=== PATIENT | female | born 1960 | race Caucasian/White ===

== ENCOUNTER 2019-08-22 10:54 | Emergency (ER) | payer BC ==
--- OUTSIDE RECORDS SUMMARY | 2019-08-22 11:02 | XMS REPORT | Continuity of Care Document ---
:1960 External Reference #:[id number] Author Name Bia Rosado M.D. 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 Problems Description No Information Available Social History Type Date Description Comments Sex Unknown ETOH Use Currently consumes alcohol Tobacco Use Start: Unknown Patient has never smoked Recreational Drug Use Never Used Drugs Smoking Status Reviewed: 07/23/19 Patient has never smoked Exercise Type/Frequency Does not exercise Allergies, Adverse Reactions, Alerts Description No Known Drug Allergies Medications Active Medications SIG Qnty Indications Ordering Provider Date Vitamin B-12 ER Unknown Metoprolol Succinate Unknown ER 25mg Tablets ER 24HR Vitamin D High Potency 1 daily Unknown Magnesium 1 by mouth every Unknown 400mg Tablets day Aleve 1-2 by mouth Unknown 220mg Capsules twice a day as needed Keyes XL Unknown [id number] Capsules Medications Administered in Office Medication SIG Qnty Indications Ordering Provider Date Depomedrol 40MG Bia Rosado M.D. 07/23/2019 Injection Depomedrol 40MG CROW Miller 04/25/2018 Injection Immunizations Description No Information Available Vital Signs Date Vital Result Comment 07/23/2019 9:41am Height 65 inches 5'5" Weight 161.00 lb Heart Rate 65 /min BP Systolic 122 mmHg BP Diastolic 82 mmHg Respiratory Rate 18 /min Pain Level 8 O2 % BldC Oximetry 99 % BMI (Body Mass Index) 26.8 kg/m2 04/25/2018 11:18am Height 65 inches 5'5" Weight 173.00 lb BP Systolic 117 mmHg BP Diastolic 76 mmHg Respiratory Rate 16 /min Pain Level 10 BMI (Body Mass Index) 28.8 kg/m2 Results Description No Information Available Procedures Date Code Description Status 07/23/201922914 Inject Tendon Sheath Or Ligament Aponeurosis Eg Plantar Completed Fascia Medical Devices Description No Information Available Encounters Description No Information Available Assessments Date Code Description Provider 07/23/2019 M65.4 Radial styloid tenosynovitis [de Quervain] Bia Rosado M.D. Plan of Treatment 07/23/2019 - Bia Rosado M.D.M65.4 Radial styloid tenosynovitis [de Quervain]Follow up:Follow up: As needed Functional Status Description No Information Available Mental Status Description No Information Available Referrals Description No Information Available
--- OUTSIDE RECORDS SUMMARY | 2019-08-22 11:02 | XMS REPORT | Continuity of Care Document ---
:1960 External Reference #:[id number] Author Name Bia Rosado M.D. Address [address] [facility] [place] [address] Care Team Providers Name Role Phone David Hernandez MD - Internal Medicine Care Team Information Home Health Care Physician Problems Description No Information Available Social History [...] 220mg Capsules twice a day as needed Romney XL Unknown [id number] Capsules Medications Administered in Office Medication SIG Qnty Indications Ordering Provider Date Depomedrol 40MG CROW Miller 04/25/2018 Injection Immunizations [...] Information Available Procedures Date Code Description Status 07/23/201995972 Inject Tendon Sheath Or Ligament Aponeurosis Eg [...]
--- OUTSIDE RECORDS SUMMARY | 2019-08-22 11:02 | XMS REPORT | Continuity of Care Document ---
:1960 External Reference #:[id number] Author Name Michelle Maldonado M.D. 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 07/23/2019 Injection Depomedrol 40MG CROW Miller 04/25/2018 Injection Immunizations Description No Information Available Vital Signs Date Vital Result Comment 08/22/2019 9:33am Height 65 inches 5'5" Weight 148.00 lb Heart Rate 80 /min BP Systolic 132 mmHg BP Diastolic 70 mmHg Body Temperature 97.6 F Pain Level 10 BMI (Body Mass Index) 24.6 kg/m2 07/23/2019 9:41am Height 65 inches 5'5" Weight 161.00 lb Heart Rate 65 /min BP Systolic 122 mmHg BP Diastolic 82 mmHg Respiratory Rate 18 /min Pain Level 8 O2 % BldC Oximetry 99 % BMI (Body Mass Index) 26.8 kg/m2 Results Description No Information Available Procedures Date Code Description Status 07/23/201948573 Inject Tendon Sheath Or Ligament Aponeurosis Eg Plantar Completed Fascia Medical Devices Description No Information Available Encounters Description No Information Available Assessments Date Code Description Provider 07/23/2019 M65.4 Radial styloid tenosynovitis [de Quervain] Bia Rosado M.D. Plan of Treatment No Information Available Functional Status Description No Information Available Mental Status Description No Information Available Referrals Description No Information Available
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
[2019-08-22 11:05] VITALS: BP 139/91
== END 2019-08-22 12:50 | disposition home or self-care (01) ==
LOC: UCEAST 10:54
DX: S02.2XXA Fracture of nasal bones, initial encounter for closed fracture (principal); S62.91XA Unspecified fracture of right hand, initial encounter for closed fracture; S00.31XA Abrasion of nose, initial encounter; S60.512A Abrasion of left hand, initial encounter; S60.511A Abrasion of right hand, initial encounter; W18.30XA Fall on same level, unspecified, initial encounter; Y93.89 Activity, other specified; Y92.9 Unspecified place or not applicable
CPT/HCPCS: 70450; 70486; 72125; 99212; G0463